=== PATIENT | male | born 1960 | race Caucasian/White ===

== ENCOUNTER 2018-10-07 17:42 | Emergency (ER) | payer BC ==
[2018-10-07] MEDS ORDERED: Ketorolac 60 MG/2 ML SDV IM ONE (17:57)
[2018-10-07] MEDS ORDERED: HYDROmorphone 1 MG/ML Syringe IM ONE (17:57)
[2018-10-07] MEDS ORDERED: Cyclobenzaprine 10 MG Tab PO ONE (17:58)
--- NOTE | 2018-10-07 18:10 | EDM.PDOC ---
ED HPI GENERAL MEDICAL PROBLEM - General Chief Complaint: Back Pain or Injury Stated Complaint: BACK IS OUT Time Seen by Provider: 10/07/18 17:52 Source of Information: Reports: Patient History Limitations: Reports: No Limitations - History of Present Illness INITIAL COMMENTS - FREE TEXT/NARRATIVE: The patient presents with low back pain. This started today. He was helping get a bailer unstuck with hay and he was pulling hard. He did not fall. He felt a little sore but when he went home, he had severe pain when he bent over. He denies numbness or weakness. He says this will happen every so often after he got bucked off a horse about 12 years ago. He has no bowel or bladder problems. He says now there is a little more pain to the right side. Onset: Sudden Duration: Hour(s): Location: Reports: Back Quality: Reports: Sharp Severity: Severe Improves with: Reports: Immobilization Worsens with: Reports: Movement Context: Reports: Other (He was pulling and bending over) Associated Symptoms: Reports: No Other Symptoms Lower Back Pain Score (Numeric/FACES): 9 - Related Data Allergies Allergy/AdvReac Type Severity Reaction Status Date / Time No Known Allergies Allergy Verified 10/07/18 17:51 Home Meds: Home Meds Cetirizine [ZyrTEC] 10 mg PO DAILY 10/07/18 [History] Cyclobenzaprine [Flexeril] 10 mg PO TID PRN #20 tab 10/07/18 [Rx] Hydrocodone/Acetaminophen [Hydrocodon-Acetaminophen 5-325] 1 - 2 each PO Q6HR PRN #20 tablet 10/07/18 [Rx] Ranitidine HCl [Zantac] 1 tab PO DAILY 10/07/18 [History] Past Medical History Respiratory History: Reports: Asthma Gastrointestinal History: Reports: GERD Musculoskeletal History: Reports: Back Pain, Chronic Social & Family History - Tobacco Use Smoking Status *Q: Never Smoker Second Hand Smoke Exposure: No - Caffeine Use Caffeine Use: Reports: Coffee, Soda - Recreational Drug Use Recreational Drug Use: No ED ROS GENERAL - Review of Systems Review Of Systems: See Below Constitutional: Reports: No Symptoms HEENT: Reports: No Symptoms Respiratory: Reports: No Symptoms Cardiovascular: Reports: No Symptoms Endocrine: Reports: No Symptoms GI/Abdominal: Reports: No Symptoms : Reports: No Symptoms Musculoskeletal: Reports: Back Pain Skin: Reports: No Symptoms Neurological: Reports: No Symptoms ED EXAM,LOWER BACK PAIN/INJURY - Physical Exam Exam: See Below Exam Limited By: No Limitations General Appearance: Alert, No Apparent Distress Ears: Normal External Exam Nose: Normal Inspection Head: Atraumatic, Normocephalic Neck: Normal Inspection Respiratory/Chest: No Respiratory Distress, Lungs Clear, Normal Breath Sounds Cardiovascular: Regular Rate, Rhythm, No Edema, No Murmur GI/Abdominal: Soft, Non-Tender, No Organomegaly, No Mass Back Exam: Other (Pain upon palpation to the low back) Extremities: Normal Inspection Neurological: No Motor/Sensory Deficits, Oriented x 3 Course - Vital Signs Last Recorded V/S: Last Vital Signs Temp 97.9 F 10/07/18 17:50 Pulse 79 10/07/18 17:50 Resp 20 10/07/18 17:50 BP 151/90 H 10/07/18 17:50 Pulse Ox 95 10/07/18 17:50 - Orders/Labs/Meds Orders: Active Orders 24 hr Category Date Time Status Cyclobenzaprine [Flexeril] Med 10/07/18 17:58 Once 10 mg PO ONETIME ONE HYDROmorphone [Dilaudid] Med 10/07/18 17:57 Once 1 mg IM ONETIME ONE Ketorolac [Toradol] Med 10/07/18 17:57 Once 60 mg IM ONETIME ONE - Re-Assessments/Exams Free Text/Narrative Re-Assessment/Exam: 10/07/18 18:02 I ordered dilaudid 1mg IM, toradol 60mg IM and flexeril 10mg by mouth. I will get him on some hydrocodone and flexeril. Departure - Departure Time of Disposition: 18:15 Disposition: Home, Self-Care 01 Condition: Good Clinical Impression: Lumbar strain Qualifiers: Encounter type: initial encounter Qualified Code(s): S39.012A - Strain of muscle, fascia and tendon of lower back, initial encounter - Discharge Information *PRESCRIPTION DRUG MONITORING PROGRAM REVIEWED*: No *COPY OF PRESCRIPTION DRUG MONITORING REPORT IN PATIENT BRIAN: No Prescriptions: Hydrocodone/Acetaminophen [Hydrocodon-Acetaminophen 5-325] 1 - 2 each PO Q6HR PRN #20 tablet PRN Reason: Pain Cyclobenzaprine [Flexeril] 10 mg PO TID PRN #20 tab PRN Reason: Pain Referrals: PCP,Not In Area [Primary Care Provider] - Surendra Reagan PA-C [Physician [employer] Apprentice] - 1 Week Additional Instructions: Take motrin or aleve and take hydrocodone if that is not helping. Take the flexeril as needed for pain. Please return if you are worse. - My Orders Last 24 Hours: My Active Orders 10/07/18 17:57 HYDROmorphone [Dilaudid] 1 mg IM ONETIME ONE Ketorolac [Toradol] 60 mg IM ONETIME ONE 10/07/18 17:58 Cyclobenzaprine [Flexeril] 10 mg PO ONETIME ONE - Assessment/Plan Last 24 Hours: My Active Orders 10/07/18 17:57 HYDROmorphone [Dilaudid] 1 mg IM ONETIME ONE Ketorolac [Toradol] 60 mg IM ONETIME ONE 10/07/18 17:58 Cyclobenzaprine [Flexeril] 10 mg PO ONETIME ONE
== END 2018-10-07 18:29 | disposition home or self-care (01) ==
LOC: JD.ED 17:42
DX: S39.012A Strain of muscle, fascia and tendon of lower back, initial encounter (principal); K21.9 Gastro-esophageal reflux disease without esophagitis; Z79.899 Other long term (current) drug therapy; X58.XXXA Exposure to other specified factors, initial encounter
CPT/HCPCS: 96372; 99283; A9270; J1170; J1885